=== PATIENT | female | born 1955 | race Caucasian/White ===

== ENCOUNTER → 2017-09-22 01:52 | Outpatient (CLI) | payer BC, SELFPAY ==
[2017-09-22 11:19] LABS: Hemoglobin A1C 5.8 % (4.5-6.2)
[2017-09-22 11:24] LABS: ALT 39 U/L (12-78); AST 27 U/L (15-37); Alkaline Phosphatase 71 U/L (46-116); Anion Gap 9.8 mmol/L (3-11); BUN 8 mg/dL (7-18); Bilirubin, Total 0.2 mg/dL (0.2-1.0); CO2 27.2 mmol/L (21.0-32.0); CREATININE 0.69 mg/dL (0.55-1.02); Calcium 8.9 mg/dL (8.5-10.1); Chloride 104 mmol/L (98-107); Cholesterol 163 mg/dL (50-200); Glucose 100 mg/dL (70-100); HDL Cholesterol 46 mg/dL (40-60); LDL CHOLESTEROL 99 mg/dL (<100); Potassium 4.5 mmol/L (3.5-5.1); Sodium 141 mmol/L (136-145); Triglyceride 90 mg/dL (30-150)
== END ==
PROVIDERS: PCP Family Medicine; Visit Provider Family Medicine
DX: R73.01 Impaired fasting glucose (principal); E78.5 Hyperlipidemia, unspecified
CPT/HCPCS: 36415; 80053; 80061; 83721; 83036

== ENCOUNTER 2018-07-18 01:30 | Outpatient (CLI) | payer BC, SELFPAY ==
[2018-07-18 11:36] LABS: ALT 41 U/L (12-78); AST 28 U/L (15-37); Albumin 4.2 g/dL (3.4-5.0); Alkaline Phosphatase 61 U/L (46-116); Anion Gap 10.3 mmol/L (3-11); BUN 10 mg/dL (7-18); Bilirubin, Total 0.4 mg/dL (0.2-1.0); CO2 27.7 mmol/L (21.0-32.0); CREATININE 0.69 mg/dL (0.55-1.02); Calcium 9.4 mg/dL (8.5-10.1); Calculated LDL 89; Chloride 101 mmol/L (98-107); Cholesterol 152 mg/dL (50-200); Glucose 101 mg/dL (70-100); HDL Cholesterol 43 mg/dL (40-60); Potassium 4.5 mmol/L (3.5-5.1); Sodium 139 mmol/L (136-145); TSH 1.91 uIU/mL (0.358-3.74); Total Protein 7.4 g/dL (6.4-8.2); Triglyceride 100 mg/dL (30-150)
== END 2018-07-18 01:50 ==
PROVIDERS: PCP Family Medicine; Visit Provider Family Medicine
DX: E78.5 Hyperlipidemia, unspecified (principal); E03.9 Hypothyroidism, unspecified
CPT/HCPCS: 36415; 80053; 80061; 83721; 84443

== ENCOUNTER 2019-08-02 04:13 | Outpatient (CLI) | payer BC, SELFPAY ==
[2019-08-02 08:29] LABS: Bilirubin Negative (Negative); Blood Negative (Negative); Clarity Clear (Clear); Glucose Negative (Negative); Ketones Negative (Negative); Leukocyte Esterase Negative (Negative); Nitrite Negative (Negative); Specific Gravity 1.015 (1.005-1.025); Urobilinogen 0.2 EU/dL (Up TO 0.2)
[2019-08-02 08:38] LABS: HCT 46.5 % (36.0-46.0); HGB 15.1 g/dL (12.0-15.5); Mean Corp. HGB Concentration 32.5 g/dL (32.0-36.0); Mean Corpuscular Hemoglobin 29.3 pg (27.0-33.0); Mean Corpuscular Volume 90.3 fL (80-95); Platelet Count 307 x1000/uL (130-400); RBC 5.15 m/cumm (4.00-5.20); RBC Distribution Width 13.4 % (11.7-14.6); White Blood Cell Count 6.46 k/cumm (4.4-10.8)
[2019-08-02 10:00] LABS: ALT 38 U/L (14-59); AST 30 U/L (15-37); Albumin 4.2 g/dL (3.4-5.0); Alkaline Phosphatase 59 U/L (46-116); Anion Gap 8.8 mmol/L (3-11); BUN 12 mg/dL (7-18); Bilirubin, Total 0.6 mg/dL (0.2-1.0); CO2 27.2 mmol/L (21.0-32.0); CREATININE 0.79 mg/dL (0.55-1.02); Calcium 9.3 mg/dL (8.5-10.1); Chloride 101 mmol/L (98-107); Glucose 142 mg/dL (74-106); Potassium 4.4 mmol/L (3.5-5.1); Sodium 137 mmol/L (136-145); TSH 0.93 uIU/mL (0.36-3.74); Total Protein 7.3 g/dL (6.4-8.2)
[2019-08-02 12:29] LABS: Calculated LDL 114 mg/dL (<100); Cholesterol 193 mg/dL (<200); HDL Cholesterol 48 mg/dL (40-60); Triglyceride 157 mg/dL (<150)
== END 2019-08-02 04:33 ==
PROVIDERS: PCP Family Medicine; Visit Provider Family Medicine
DX: E03.9 Hypothyroidism, unspecified (principal); E78.5 Hyperlipidemia, unspecified; F32.9 Major depressive disorder, single episode, unspecified; N39.0 Urinary tract infection, site not specified; Z00.00 Encounter for general adult medical examination without abnormal findings
CPT/HCPCS: 36415; 80053; 80061; 85027; 81003; 84443

== ENCOUNTER 2020-08-03 02:53 | Outpatient (CLI) | payer MEDICARE, SELFPAY ==
[2020-08-03 12:33] LABS: Hemoglobin A1C 5.6 % (<5.7)
[2020-08-03 12:42] LABS: Calculated LDL 88 mg/dL (<100); Cholesterol 152 mg/dL (<200); HDL Cholesterol 36 mg/dL (40-60); TSH (W/Ref FT4) 0.84 uIU/mL (0.36-3.74); Triglyceride 140 mg/dL (<150)
== END 2020-08-03 02:54 | disposition home or self-care (01) ==
LOC: LOS 02:53
PROVIDERS: PCP Nurse Practitioner Family; Visit Provider Nurse Practitioner Family
DX: R73.09 Other abnormal glucose (principal); E03.9 Hypothyroidism, unspecified
CPT/HCPCS: 36415; 80061; 83036; 84443

== ENCOUNTER 2021-06-29 02:08 | Outpatient (CLI) | payer MEDICARE, SELFPAY ==
[2021-06-29 13:09] LABS: ALT 41 U/L (14-59); AST 27 U/L (15-37); Alkaline Phosphatase 67 U/L (46-116); Anion Gap 7.6 mmol/L (3-11); BUN 15 mg/dL (7-18); Bilirubin, Total 0.4 mg/dL (0.2-1.0); CO2 28.4 mmol/L (21.0-32.0); CREATININE 0.7 mg/dL (0.55-1.02); Chloride 105 mmol/L (98-107); Glucose 106 mg/dL (74-106); Potassium 4.8 mmol/L (3.5-5.1); Sodium 141 mmol/L (136-145); TSH 1.59 uIU/mL (0.36-3.74)
== END 2021-06-29 02:09 | disposition home or self-care (01) ==
LOC: LOS 02:08
PROVIDERS: PCP Nurse Practitioner Family; Visit Provider Nurse Practitioner Family
DX: E03.8 Other specified hypothyroidism (principal); E06.3 Autoimmune thyroiditis; E87.1 Hypo-osmolality and hyponatremia
CPT/HCPCS: 36415; 80053; 84443

== ENCOUNTER 2022-06-16 11:37 | Outpatient (CLI) | payer MEDICARE, SELFPAY ==
--- NOTE | 2022-06-16 10:45 | DI.RAD_ITS ---
Exam(s) XR HIP RT COMPLETE AP PELVIS EXAM: XR HIP RT COMPLETE AP PELVIS CLINICAL HISTORY: R hip pain. TECHNIQUE: 2D digital imaging was performed of the right hip. Three images were obtained. AP pelvis and lateral right hip views were obtained. COMPARISON: No exams were available for comparison FINDINGS: BONES: No acute fracture is present. No bony destructive lesion is seen. JOINTS: No dislocation present. The joint spaces are well maintained apart from mild joint space narr owing bilaterally. The sacroiliac joints of since pubis are unremarkable. SOFT TISSUE: Normal. IMPRESSION: There is mild narrowing of the hip joints bilaterally. DATA REPOSITORY: RADIATION DOSE DELIVERED:
== END 2022-06-16 11:38 | disposition home or self-care (01) ==
LOC: DIORS 11:37
PROVIDERS: PCP Nurse Practitioner Family; Referring Provider Nurse Practitioner Family; Visit Provider Student in an Organized Health Care Education/Training Program
DX: M70.61 Trochanteric bursitis, right hip
CPT/HCPCS: 99203; 73502

== ENCOUNTER 2022-08-15 02:56 | Outpatient (CLI) | payer MEDICARE, SELFPAY ==
[2022-08-15 12:55] LABS: Hemoglobin A1C 5.9 % (<5.7)
[2022-08-15 13:04] LABS: Anion Gap 7.9 mmol/L (3-11); BUN 12 mg/dL (7-18); CO2 29.1 mmol/L (21.0-32.0); CREATININE 0.8 mg/dL (0.55-1.02); Calcium 9.2 mg/dL (8.5-10.1); Calculated LDL 96 mg/dL (<100); Chloride 102 mmol/L (98-107); Cholesterol 172 mg/dL (<200); Estimated GFR 80.71 (mL/min/1.73m2); Glucose 119 mg/dL (74-106); HDL Cholesterol 39 mg/dL (40-60); Potassium 4.8 mmol/L (3.5-5.1); Sodium 139 mmol/L (136-145); TSH (W/Ref FT4) 4.08 uIU/mL (0.36-3.74); Triglyceride 187 mg/dL (<150)
[2022-08-15 13:48] LABS: FREE T4 0.91 ng/dL (0.76-1.46)
== END 2022-08-15 02:57 | disposition home or self-care (01) ==
LOC: LOS 02:56
PROVIDERS: PCP Nurse Practitioner Family; Visit Provider Nurse Practitioner Family
DX: E78.5 Hyperlipidemia, unspecified (principal); K21.9 Gastro-esophageal reflux disease without esophagitis; E03.9 Hypothyroidism, unspecified; R73.09 Other abnormal glucose
CPT/HCPCS: 36415; 80048; 80061; 83036; 84439; 84443

== ENCOUNTER 2023-08-05 09:19 | Outpatient (CLI) | payer MEDICARE, SELFPAY ==
--- NOTE | 2023-08-05 09:15 | RT.EKG_ITS ---
APPROVED REPORT Exam: Resting ECG Reason for Exam: bradycardia Patient Location: O HR:60 bpm ECG Measurements Heart Rate 60 AXIS NE 166 P 67 QRSd 154 QRS -18 QT 472 T 125 QTc 472 Conclusion Sinus rhythm...normal P axis, V-rate 50- 99 Probable left atrial enlargement...P >50mS, <-0.10mV V1 Left bundle branch block...QRSd>120, broad/notched R
== END 2023-08-05 09:20 | disposition home or self-care (01) ==
LOC: DI.CM 09:20
PROVIDERS: PCP Nurse Practitioner Family; Visit Provider Nurse Practitioner Family
DX: R00.1 Bradycardia, unspecified (principal)
CPT/HCPCS: 93010

== ENCOUNTER 2023-08-10 13:21 | Outpatient (RCR) | payer MEDICARE, SELFPAY ==
--- NOTE | 2023-08-10 13:45 | HOLTER_ITS ---
APPROVED REPORT Conclusion This is a 48-hour Holter monitor Rhythm throughout is sinus with an average heart rate of 53. Minimum was 32, maximum 84 A total of 6 isolated premature ventricular contractions were recorded There were very rare isolated atrial premature beats There was no atrial fibrillation, no high-grade AV block, no pauses greater than 3 seconds
== END 2023-08-13 23:59 | disposition home or self-care (01) ==
LOC: CARDOPNVT 13:21
PROVIDERS: PCP Nurse Practitioner Family; Visit Provider Nurse Practitioner Family
DX: R00.1 Bradycardia, unspecified (principal)
CPT/HCPCS: 93225

== ENCOUNTER 2023-08-14 14:13 | Outpatient (RCR) | payer MEDICARE, SELFPAY | END 2023-09-13 23:59 | disposition home or self-care (01) | LOC: CARDOPNVT 14:13 | PROVIDERS: PCP Nurse Practitioner Family; Visit Provider Nurse Practitioner Family | DX: R00.1 Bradycardia, unspecified (principal); I49.3 Ventricular premature depolarization | CPT/HCPCS: 93227; 93226 ==

== ENCOUNTER 2023-08-15 03:19 | Outpatient (CLI) | payer MEDICARE, SELFPAY ==
[2023-08-15 13:04] LABS: ALT 37 U/L (14-59); AST 25 U/L (15-37); Albumin 4.1 g/dL (3.4-5.0); Alkaline Phosphatase 58 U/L (46-116); Anion Gap 6.3 mmol/L (3-11); BUN 11 mg/dL (7-18); Bilirubin, Total 0.33 mg/dL (0.2-1.0); CO2 29.7 mmol/L (21.0-32.0); CREATININE 0.8 mg/dL (0.55-1.02); Calcium 9.1 mg/dL (8.5-10.1); Calculated LDL 101 mg/dL (<100); Chloride 104 mmol/L (98-107); Cholesterol 184 mg/dL (<200); Estimated GFR 80.21 (mL/min/1.73m2); Glucose 124 mg/dL (74-106); HDL Cholesterol 46 mg/dL (40-60); Potassium 4.3 mmol/L (3.5-5.1); Sodium 140 mmol/L (136-145); TSH (W/Ref FT4) 5.07 uIU/mL (0.36-3.74); Total Protein 7.7 g/dL (6.4-8.2); Triglyceride 187 mg/dL (<150)
[2023-08-15 13:23] LABS: FREE T4 0.84 ng/dL (0.76-1.46)
== END 2023-08-15 03:20 | disposition home or self-care (01) ==
LOC: LOS 03:20
PROVIDERS: PCP Nurse Practitioner Family; Visit Provider Nurse Practitioner Family
DX: E78.2 Mixed hyperlipidemia (principal); E03.8 Other specified hypothyroidism; E06.3 Autoimmune thyroiditis
CPT/HCPCS: 36415; 80053; 80061; 84439; 84443

== ENCOUNTER 2024-09-02 02:05 | Outpatient (CLI) | payer MEDICARE, SELFPAY ==
[2024-09-02 12:40] LABS: ALT 42 U/L (14-59); AST 26 U/L (15-37); Albumin 4.1 g/dL (3.4-5.0); Alkaline Phosphatase 61 U/L (46-116); Anion Gap 6.7 mmol/L (3-11); BUN 9 mg/dL (7-18); Bilirubin, Total 0.4 mg/dL (0.2-1.0); CO2 30.3 mmol/L (21.0-32.0); Calcium 9.6 mg/dL (8.5-10.1); Calculated LDL 79 mg/dL (<100); Chloride 102 mmol/L (98-107); Cholesterol 163 mg/dL (<200); Estimated GFR 93.56 (mL/min/1.73m2); Glucose 122 mg/dL (74-106); HDL Cholesterol 44 mg/dL (>or=50); Potassium 4.8 mmol/L (3.5-5.1); Sodium 139 mmol/L (136-145); TSH (W/Ref FT4) 3.69 uIU/mL (0.36-3.74); Total Protein 7.5 g/dL (6.4-8.2); Triglyceride 202 mg/dL (<150)
[2024-09-02 14:17] LABS: Hemoglobin A1C 5.8 % (<5.7)
== END 2024-09-02 02:06 | disposition home or self-care (01) ==
LOC: LOS 02:05
PROVIDERS: PCP Nurse Practitioner Family; Visit Provider Nurse Practitioner Family
DX: R73.03 Prediabetes (principal); E78.2 Mixed hyperlipidemia
CPT/HCPCS: 36415; 80053; 80061; 83036; 84443

== ENCOUNTER 2024-11-01 02:19 | Outpatient (CLI) | payer MEDICARE, SELFPAY ==
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
== END 2024-11-01 02:39 ==
LOC: DI 02:20
PROVIDERS: PCP Nurse Practitioner Family; Visit Provider Nurse Practitioner Family
DX: M48.02 Spinal stenosis, cervical region (principal)
CPT/HCPCS: 72141

== ENCOUNTER 2024-11-04 11:26 | Outpatient (CLI) | payer MEDICARE, SELFPAY ==
[2024-11-04 15:06] LABS: Estimated GFR 79.22 (mL/min/1.73m2)
[2024-11-04] MEDS: Normal Saline - Diluent 50 ML VIAL IJ (15:26)
[2024-11-04] MEDS: Omnipaque 350 MG/ML 100 ML BTL IJ (15:26)
[2024-11-04] MEDS: Normal Saline Flush 10 ML SYR IVP (15:27)
--- NOTE | 2024-11-04 16:30 | DI.CT_ITS ---
Exam(s) CT CHEST W EXAM: CT CHEST W CLINICAL HISTORY: f/u cervical MRI,mass of chest, r22.2 TECHNIQUE: Imaging Protocol: Axial computed tomography images with coronal and sagittal reformatted images were created and reviewed. Computer aided detection (CAD) was utilized. CONTRAST MATERIAL: Intravenous: Omnipaque 350 Contrast volume:structured data ml. COMPARISON: CR CERVICAL SP. LIMITED (TRAUMA) from 01/20/2015 FINDINGS: Pulmonary parenchyma: No consolidation. No dominant measurable mass. Tracheobronchial tree: No bronchiectasis or mucous plugging. Mediastinum and Gladys: Circumscribed fluid collection superior to the aortic arch and adjacent to the esophagus and upper thoracic spine. It measures 3.5 cm transverse x 4.8 cm AP by 4.8 cm cephalo caudad. There is no evidence of enhancement, calcifications or wall thickening. No dominant adenopathy. Pleura: No effusion. No pneumothorax. Heart: The heart is not dilated. Minimal coronary artery calcifications are seen. Aorta: Thoracic aorta non-dilated. Mild atherosclerotic changes. Pulmonary arteries: No gross evidence of emboli. Upper abdomen: No acute findings. Small liver cysts. Bones: Mild upper thoracic scoliosis. Degenerative changes in the mid and lower spine. No bony erosion adjacent to the cystic lesion. Soft tissues: Bilateral breast implants. IMPRESSION: 4.8 centimeter lesion superior to the aorta at appears purely cystic. This could represent a bronchogenic cyst, esophageal duplication cyst, lymphocele or neurenteric cyst. RADIATION DOSE DELIVERED: 170.17mGy.cm Total DLP DATA REPOSITORY: All CT scans at this facility are submitted to the National Radiology Data Registry (NRDR) Dose Index Registry (DIR) with the [employer] (A[employer]). RADIATION OPTIMIZATION: All CT scans at this facility use at least one of these dose optimization techniques: automated exposure control; mA and/or kV adjustment per patient size (includes targeted exams where dose is matched to clinical indication); or iterative reconstruction.
== END 2024-11-04 11:46 ==
LOC: DI 11:26
PROVIDERS: PCP Nurse Practitioner Family; Visit Provider Nurse Practitioner Family
DX: R22.2 Localized swelling, mass and lump, trunk (principal)
CPT/HCPCS: 71260; 82565; J3490

== ENCOUNTER 2025-01-21 14:06 | Outpatient (CLI) | payer MEDICARE, SELFPAY ==
[2025-01-21 14:06] VITALS: BP 125/70; PULSE 64; RESP 18; TEMP 36.6; O2SAT 98
[2025-01-21 14:44] VITALS: PULSE 67; O2SAT 97
--- NOTE | 2025-01-21 14:51 | PDOC.PAIN_ITS ---
Date of service: 01/21/25 Time of Service: 14:55 Pain Managment Procedure Note Procedure Note Procedure Note: Trigger Point Injection ? Location: Left trapezius muscle ? Pre-procedure Diagnosis:? M79.10- Myalgia, unspecified site ? Post-procedure Diagnosis:? The same as above ? Sedation: none? Estimated blood loss: < 1 ml ? Surgeon:? Kurt Justice MD ? Procedure Detail:?? The procedure and potential risks were explained to the patient and informed written consent was obtained. Time out was performed in procedure room with nursing staff confirming the patient's identity, procedure to be performed, allergies, and any blood thinning or anti-platelet medications. Sterile gloves were used, a face mask was worn, and new single dose vials of all medications were used with the top being swabbed with alcohol and given time to dry prior to withdrawal of medication.? Trigger points were palpated and confirmed to reproduce the patient?s pain symptoms.? A 25-gauge 1.5 inch needle was advanced to the target.? following negative aspiration a total of 5 ml from a mixture of 0.5% bupivacaine and 20 mg Depo- Medrol was injected into 3 locations along the trapezius superiorly.? ? The patient tolerated the procedure well. Patient discharged home in stable condition. PAIN: PRE-PROCEDURE 10 POST-PROCEDURE 03/25 Plan:? Follow up prn. If she is not better in 2 weeks then would proceed with a cervical epidural steroid injection to C4- 5 with catheter to left Coding Conscious Sedation used for procedure: No CPT Codes: TPI Single/Multi 1 or 2 Muscles - ([id number] ~G) Additional Codes: Date of Service (03649) Diagnoses: M79.10- Myalgia, unspecified site
[2025-01-21] MEDS: Bupivacaine 0.5% Pres-Free 10 ML VIAL IJ (14:52)
[2025-01-21] MEDS: methylPREDNISolone ACETATE 40 MG/ML VIAL IJ (14:53)
[2025-01-21] MEDS: Nerve Block Tray 1 EACH MC (14:54)
== END 2025-01-21 14:07 | disposition home or self-care (01) ==
LOC: PC 14:06
PROVIDERS: PCP Nurse Practitioner Family; Visit Provider Anesthesiology Pain Medicine
DX: M79.18 Myalgia, other site (principal)
CPT/HCPCS: 20552; J0665; J1010